=== PATIENT | female | born 1990 | race Caucasian/White ===

== ENCOUNTER 2018-08-28 11:21 | Emergency (ER) | payer OTHER ==
--- NOTE | 2018-08-28 11:49 | EDPHY ---
H & P Stated Complaint: Abd pain Time Seen by Provider: 08/28/18 11:48 HPI/ROS: HPI: This is a 28-year-old female who presents with Chief Complaint: Abdominal pain Location: Left lower quadrant Quality: Sharp, severe pain Duration: Since 9:00 p.m. Signs and Symptoms: no fever, + nausea, no vomiting, no hematemesis, no blood in stool, no abdominal bloating, no diarrhea, no back pain, no urinary symptoms , no vaginal bleeding/discharge, no indigestion, no chest pain, no shortness of breath Timing: Acute, constant Severity: Moderate Context: Patient is generally healthy, has an IUD in place, presents with sudden onset around 9:00 p.m. Of left lower quadrant nonradiating pain that she describes as sharp and severe in intensity. She reports that it has remained constant and has not improved. She ate [employer] at around 9:00 p.m.. She has daily bowel movements. No prior history of ovarian cyst. She also feels fullness in her lower back. Denies any difficulty urinating or blood in her urine. She has noted that she has been drinking more coffee than usual not drinking enough water. She wonders if she has a kidney stone. Modifying Factors: None Comment: ROS: A comprehensive 10 system review of systems is otherwise negative aside from elements mentioned in the history of present illness. MEDICAL/SURGICAL/SOCIAL HISTORY: Medical history: Generally healthy. IUD in place. Surgical history: Denies Social history: Never smoked. Family history noncontributory. CONSTITUTIONAL: Extremely polite and cooperative adult white female, awake and alert, no obvious distress HEENT: Atraumatic and normocephalic, PERRL, EOMI. Nares patent; no rhinorrhea; no nasal mucosal edema. Tympanic membranes clear. Oropharynx clear, no exudate and moist pink mucosa. Airway patent. No lymphadenopathy. No meningismus. Cardiovascular: Normal S1/S2, regular rate, regular rhythm, without murmur rub or gallop. PULMONARY/CHEST: Symmetrical and nontender. Clear to auscultation bilaterally. Good air movement. No accessory muscle usage. ABDOMEN: Soft, nondistended, moderate left lower quadrant reproducible tenderness, no rebound, no guarding, no peritoneal signs, no masses or organomegaly. No CVAT. EXTREMITIES: 2/2 pulses, strength 5/5, no deformities, no clubbing, no cyanosis or edema. NEUROLOGICAL: no focal neuro deficits. GCS 15. SKIN: Warm and dry, no erythema. no rash. Good capillary refill. Source: Patient Exam Limitations: No limitations - Personal History LMP (Females 10-55): IUD In Place Current Tetanus/Diphtheria Vaccine: Unsure - Medical/Surgical History Hx Asthma: No Hx Chronic Respiratory Disease: No Hx Diabetes: No Hx Cardiac Disease: No Hx Renal Disease: No Hx Cirrhosis: No Hx Alcoholism: No Other PMH: Denies - Social History Smoking Status: Never smoked Constitutional: Initial Vital Signs Temperature (C) 37.5 C 08/28/18 11:25 Heart Rate 89 08/28/18 11:25 Respiratory Rate 25 H 08/28/18 11:25 Blood Pressure 113/75 08/28/18 11:25 O2 Sat (%) 100 08/28/18 11:25 O2 Delivery Mode Room Air Allergies/Adverse Reactions: No Known Allergies Allergy (Unverified 08/28/18 11:27) Home Medications: Medication Instructions Recorded Ciprofloxacin [Cipro] 500 mg PO BID #20 tab 08/28/18 Ondansetron Odt [Zofran Odt 4 mg 4 mg PO Q4 PRN #12 tab 08/28/18 (*)] metroNIDAZOLE [Flagyl 500 mg (*)] 500 mg PO BID #20 tab 08/28/18 oxyCODONE/APAP 5/325 [Percocet 1 - 2 tab PO Q4H PRN #10 tab 08/28/18 5/325 (*)] Medical Decision Making - Diagnostics Imaging Results: Imaging Impressions Abdomen CT 08/28/18 11:54 Impression: 1. Segmental thickening of the distal colon in the region of scattered diverticula, which could be related to diverticulitis or colitis, without perforation or abscess. 2. Mild bladder wall thickening, which may be reactive or related to underdistention, or less likely related to cystitis (patient reportedly has a normal urinalysis). 3. Additional findings as above. Findings discussed with Angela Smalls PA-C on August 28, 2018 at 1307 hours. ED Course/Re-evaluation: Vital signs reviewed and show tachypnea but no fever, tachycardia. IV access, laboratory studies, urinalysis, CT abdomen pelvis scan with contrast ordered Given 1 L normal saline, IV Toradol and IV promethazine 12.5 mg 1244: Laboratory studies reviewed. WBC 14 K with left shift, potassium 4.1, creatinine 0.7. No signs of anemia/platelet dysfunction/REGGIE/elevated LFTs/ electrolyte imbalance/pancreatitis/. Urinalysis unremarkable. 1310: Called by Dr. Herzog that CT abdomen and pelvis scan shows distal descending diverticulitis versus colitis but no signs of perforation or abscess. No signs of appendicitis or stone. 1314: Given IV Cipro and IV Flagyl ED decision to consult patient Fe urea patient is extremely worried about cost and has politely decline. She is tolerating p.o. And wants to be discharged home with antibiotics with primary care and gastroenterology follow-up. Will give her prescription for Zofran and a few pain pills as well. Discussed extensively diverticular diet. 1550: Reassessed patient who has had both antibiotics now. Sleeping soundly and reports that "I feel better." Patient still does not want to come into the hospital despite knowing the risks of sepsis, perforation, . She wants to try outpatient therapy with antibiotics, bowel rest, diverticular diet and gastroenterology follow-up. This patient was seen under the supervision of my secondary supervising physician. I evaluated care for this patient with attending. Differential Diagnosis: Abdominal pain including but not limited to appendicitis, cholecystitis, gastritis and urinary tract infection. - Data Points Laboratory Results: Laboratory Results 08/28/18 11:40 08/28/18 11:40 08/28/18 08/28/18 08/28/18 12:15 11:40 11:40 WBC RBC Hgb Hct MCV MCH MCHC RDW Plt Count MPV Neut % (Auto) Lymph % (Auto) [place] % (Auto) Eos % (Auto) Baso % (Auto) Nucleat RBC Rel Count Absolute Neuts (auto) Absolute Lymphs (auto) Absolute Monos (auto) Absolute Eos (auto) Absolute Basos (auto) Absolute Nucleated RBC Immature Gran % Immature Gran # Sodium 137 mEq/L mEq/L (135-145) Potassium 4.1 mEq/L mEq/L (3.5-5.2) Chloride 108 mEq/L mEq/L (97-110) Carbon Dioxide 19 mEq/l L mEq/l (22-31) Anion Gap 10 mEq/L mEq/L (6-14) BUN 9 mg/dL mg/dL (7-23) Creatinine 0.7 mg/dL mg/dL (0.6-1.0) Estimated GFR > 60 Glucose 101 mg/dL H mg/dL (70-100) Calcium 9.4 mg/dL mg/dL (8.5-10.4) Total Bilirubin 1.1 mg/dL mg/dL (0.1-1.4) Conjugated Bilirubin 0.2 mg/dL mg/dL (0.0-0.5) Unconjugated Bilirubin 0.9 mg/dL mg/dL (0.0-1.1) AST 21 IU/L IU/L (14-46) ALT 38 IU/L IU/L (9-52) Alkaline Phosphatase 58 IU/L IU/L (38-126) Total Protein 7.0 g/dL g/dL (6.3-8.2) Albumin 4.3 g/dL g/dL (3.5-5.0) Lipase 70 IU/L IU/L (23-300) Beta HCG, Qual NEGATIVE Urine Color YELLOW Urine Appearance CLEAR Urine pH 7.0 (5.0-7.5) Ur Specific [place] 1.016 (1.002-1.030) Urine Protein NEGATIVE (NEGATIVE) Urine Ketones NEGATIVE (NEGATIVE) Urine Blood NEGATIVE (NEGATIVE) Urine Nitrate NEGATIVE (NEGATIVE) Urine Bilirubin NEGATIVE (NEGATIVE) Urine Urobilinogen NEGATIVE EU EU (0.2-1.0) Ur Leukocyte Esterase NEGATIVE (NEGATIVE) Urine Glucose NEGATIVE (NEGATIVE) 08/28/18 11:40 WBC 14.04 10^3/uL H 10^3/uL (3.80-9.50) RBC 4.72 10^6/uL 10^6/uL (4.18-5.33) Hgb 14.8 g/dL g/dL (12.6-16.3) Hct 43.8 % % (38.0-47.0) MCV 92.8 fL fL (81.5-99.8) MCH 31.4 pg pg (27.9-34.1) MCHC 33.8 g/dL g/dL (32.4-36.7) RDW 12.1 % % (11.5-15.2) Plt Count 207 10^3/uL 10^3/uL (150-400) MPV 10.1 fL fL (8.7-11.7) Neut % (Auto) 79.1 % H % (39.3-74.2) Lymph % (Auto) 10.3 % L % (15.0-45.0) [place] % (Auto) 9.0 % % (4.5-13.0) Eos % (Auto) 0.9 % % (0.6-7.6) Baso % (Auto) 0.3 % % (0.3-1.7) Nucleat RBC Rel Count 0.0 % % (0.0-0.2) Absolute Neuts (auto) 11.12 10^3/uL H 10^3/uL (1.70-6.50) Absolute Lymphs (auto) 1.44 10^3/uL 10^3/uL (1.00-3.00) Absolute Monos (auto) 1.26 10^3/uL H 10^3/uL (0.30-0.80) Absolute Eos (auto) 0.13 10^3/uL 10^3/uL (0.03-0.40) Absolute Basos (auto) 0.04 10^3/uL 10^3/uL (0.02-0.10) Absolute Nucleated RBC 0.00 10^3/uL 10^3/uL (0-0.01) Immature Gran % 0.4 % % (0.0-1.1) Immature Gran # 0.05 10^3/uL 10^3/uL (0.00-0.10) Sodium Potassium Chloride Carbon Dioxide Anion Gap BUN Creatinine Estimated GFR Glucose Calcium Total Bilirubin Conjugated Bilirubin Unconjugated Bilirubin AST ALT Alkaline Phosphatase Total Protein Albumin Lipase Beta HCG, Qual Urine Color Urine Appearance Urine pH Ur Specific [place] Urine Protein Urine Ketones Urine Blood Urine Nitrate Urine Bilirubin Urine Urobilinogen Ur Leukocyte Esterase Urine Glucose Medications Given: Discontinued Medications Sodium Chloride (Ns) 1,000 mls @ 0 mls/hr IV EDNOW ONE; Wide Open PRN Reason: Protocol Stop: 08/28/18 11:55 Last Admin: 08/28/18 12:12 Dose: 1,000 mls Ciprofloxacin/Dextrose (Cipro 400 Mg (Premix)) 200 mls @ 200 mls/hr IV EDNOW ONE PRN Reason: Protocol Stop: 08/28/18 14:12 Last Admin: 08/28/18 13:33 Dose: 200 mls Metronidazole/Sodium Chloride (Flagyl 500 Mg (Premix)) 100 mls @ 100 mls/hr IV EDNOW ONE PRN Reason: Protocol Stop: 08/28/18 14:12 Last Admin: 08/28/18 14:48 Dose: 100 mls Ketorolac Tromethamine (Toradol) 30 mg IVP EDNOW ONE Stop: 08/28/18 11:55 Last Admin: 08/28/18 12:12 Dose: 30 mg Promethazine HCl (Phenergan) 12.5 mg IVP EDNOW ONE Stop: 08/28/18 11:55 Last Admin: 08/28/18 12:13 Dose: 12.5 mg Departure - Departure Disposition: Home, Routine, Self-Care Clinical Impression: Diverticulitis of colon without hemorrhage Condition: Good Instructions: Diverticulitis (ED), Diverticulitis Diet (ED) Additional Instructions: Consume a minimum of 10-12 glasses of water or electrolyte fluid replacement drinks that include Gatorade, Powerade, Pedialyte. Eat a clear liquid diet for the next 48 hours/until pain free and then slowly advance as tolerated to a low residue diverticular diet. Take Zofran 1 tab every 4 hours as needed for nausea, vomiting. Take antibiotics as directed. Do not skip a dose. Establish care with primary care provider and follow up with Gastroenterology. Return to the Emergency Room if symptoms do not resolve in the next 48-72 hours , you spike a fever > 102 F, or experience intractable abdominal pain/nausea/ vomiting. Referrals: Hima Bose MD [Medical Doctor] - As per Instructions Hunter Copeland MD [Medical Doctor] - As per Instructions Prescriptions: Ciprofloxacin [Cipro] 500 mg PO BID #20 tab metroNIDAZOLE [Flagyl 500 mg (*)] 500 mg PO BID #20 tab Ondansetron Odt [Zofran Odt 4 mg (*)] 4 mg PO Q4 PRN #12 tab PRN Reason: Nausea/Vomiting, Use 1st oxyCODONE/APAP 5/325 [Percocet 5/325 (*)] 1 - 2 tab PO Q4H PRN #10 tab PRN Reason: Pain, Severe
[2018-08-28] MEDS ORDERED: PROMETHAZINE HCL 25 MG/ML INJ IVP ONE (11:54)
[2018-08-28] MEDS ORDERED: KETOROLAC 30 MG/1 ML SDV IVP ONE (11:54)
[2018-08-28] MEDS ORDERED: NS 1,000 ML IV ONE (11:54)
[2018-08-28 12:02] LABS: PLATELET COUNT 207 10^3/uL (150-400)
[2018-08-28] MEDS ORDERED: IOPAMIDOL (ISOVUE-300) 100 ML BTL ONE (12:22)
[2018-08-28] MEDS ORDERED: CIPROFLOXACIN 400 MG/DEXTROSE 200 ML IV ONE (13:13)
[2018-08-28 16:10] VITALS: BP 95/59
== END 2018-08-28 16:08 | disposition home or self-care (01) ==
DX: K57.30 Diverticulosis of large intestine without perforation or abscess without bleeding (principal); E86.9 Volume depletion, unspecified; Z97.5 Presence of (intrauterine) contraceptive device
CPT/HCPCS: 96365; 96366; J0744; J1885; J2550; Q9967